=== PATIENT | male | born 1970 | race Caucasian/White ===

== ENCOUNTER → 2021-02-07 | Outpatient (CLI) | payer OTHER ==
[2021-02-07 08:13] LABS: BASO % 0.5 % (0.0-1.0); EOS # 0.1 10*3/uL (0.0-0.4); EOS % 1.7 % (1.0-4.0); LYMPH # 2.7 10*3/uL (1.3-4.4); LYMPH % 33.1 % (27.0-41.0); MEAN CELL VOLUME 90.9 fl (80.0-94.0); MEAN CORPUSCULAR HGB 30.2 pg (27.0-31.0); MEAN CORPUSCULAR HGB CONC 33.3 g/dl (33.0-37.0); MEAN PLATELET VOLUME 9.7 fl (9.6-12.3); MONO # 0.4 10*3/uL (0.1-1.0); MONO % 4.9 % (3.0-9.0); NEUT # 4.9 10*3/uL (2.3-7.9); NEUT % 59.4 % (47.0-73.0); PLATELET COUNT AUTOMATED 213 10*3/uL (130-400); RED BLOOD COUNT 4.73 10*6/uL (4.50-5.90); RED CELL DISTRI WIDTH 12.5 % (0-14.5); RETICULOCYTE % 1.18 % (0.50-2.50); WHITE BLOOD COUNT 8.2 10*3/uL (4.8-10.8)
[2021-02-07 08:22] LABS: BILIRUBIN Negative (Negative); BLOOD Negative (Negative); CLARITY Cloudy (Clear); COLOR Yellow (Yellow); GLUCOSE Negative (Negative); KETONE Trace (Negative); LEUKO ESTERASE Negative (Negative); NITRITE Negative (Negative); PH 6.5 (4.5-8.0); SPECIFIC GRAVITY >= 1.030 (1.001-1.030)
[2021-02-07 08:35] LABS: ALBUMIN 3.7 gm/dl (3.1-4.5); ALKALINE PHOSPHATASE 64 U/L (45-117); BUN 16 mg/dl (7-24); CHLORIDE 107 mmol/L (98-107); CHOLESTEROL 201 mg/dL (<200); CREATININE 1.18 mg/dL (0.70-1.30); GAMMA GLUTAMYL TRANSPEPTIDASE 33 U/L (15-85); IRON 145 ug/dL (65-175); LDL CHOLESTEROL 131 mg/dL (9-159); POTASSIUM 3.9 mmol/L (3.5-5.1); SGOT/AST 18 IU/L (3-35); SGPT/ALT 28 U/L (12-78); SODIUM 139 mmol/L (136-145); TOTAL IRON BINDING CAPACITY 339 ug/dl (250-450); TOTAL PROTEIN 7.6 gm/dL (6.4-8.2); TRIGLYCERIDES 154 mg/dl (<150); URIC ACID 3.1 mg/dL (3.5-7.2)
[2021-02-07 08:53] LABS: FERRITIN 73.5 ng/mL (22.0-322.0); VITAMIN D, 25-HYDROXY 12.8 ng/mL (30-100)
[2021-02-07 11:17] LABS: BACTERIA 1+; MUCOUS 2+
[2021-02-08 05:06] LABS: RHEUMATOID ARTHRITIS FACTOR 25.7 IU/mL (<14.0)
[2021-02-08 14:08] LABS: ANTI-DSDNA ANTIBODIES 1 IU/mL (0-9)
== END | disposition home or self-care (01) ==
LOC: LAB 07:01 → US 07:30
PROVIDERS: ATTEND Family Medicine
DX: N50.3 Cyst of epididymis (principal); K76.0 Fatty (change of) liver, not elsewhere classified; R16.1 Splenomegaly, not elsewhere classified; N50.82 Scrotal pain; N44.2 Benign cyst of testis

== ENCOUNTER → 2021-07-29 | Outpatient (CLI) | payer OTHER | END | disposition home or self-care (01) | LOC: RAD 14:32 | PROVIDERS: ATTEND Family Medicine | DX: M19.041 Primary osteoarthritis, right hand (principal); M19.042 Primary osteoarthritis, left hand ==

== ENCOUNTER → 2023-05-01 | Outpatient (CLI) | payer OTHER ==
[2023-05-01 08:57] LABS: BASO # 0.1 10*3/uL (0.0-0.1); EOS # 0.1 10*3/uL (0.0-0.4); EOS % 1.8 % (1.0-4.0); HEMATOCRIT 43.8 % (42.0-52.0); LYMPH # 2.5 10*3/uL (1.3-4.4); LYMPH % 34.7 % (27.0-41.0); MEAN CELL VOLUME 91.4 fl (80.0-94.0); MEAN CORPUSCULAR HGB 31.5 pg (27.0-31.0); MEAN CORPUSCULAR HGB CONC 34.5 g/dl (33.0-37.0); MEAN PLATELET VOLUME 10.3 fl (9.6-12.3); MONO # 0.4 10*3/uL (0.1-1.0); MONO % 5.5 % (3.0-9.0); NEUT % 56.7 % (47.0-73.0); PLATELET COUNT AUTOMATED 235 10*3/uL (130-400); RED BLOOD COUNT 4.79 10*6/uL (4.50-5.90); RED CELL DISTRI WIDTH 12.4 % (0-14.5); RETICULOCYTE % 0.89 % (0.50-2.50); WHITE BLOOD COUNT 7.1 10*3/uL (4.8-10.8)
[2023-05-01 09:11] LABS: BILIRUBIN Negative (Negative); BLOOD Negative (Negative); CLARITY Clear (Clear); COLOR Yellow (Yellow); GLUCOSE Negative (Negative); KETONE Trace (Negative); LEUKO ESTERASE Negative (Negative); NITRITE Negative (Negative); PH 6.5 (4.5-8.0); SPECIFIC GRAVITY 1.025 (1.001-1.030)
[2023-05-01 09:18] LABS: BACTERIA TRACE; EPITHELIAL CELLS 0-2; HYALINE CAST 0-2; MUCOUS 2+
[2023-05-01 09:48] LABS: ALKALINE PHOSPHATASE 63 U/L (46-116); BUN 9 mg/dl (9-23); CHLORIDE 107 mmol/L (98-107); CHOLESTEROL 159 mg/dL (<200); GAMMA GLUTAMYL TRANSPEPTIDASE 23 U/L (0-73); LDL CHOLESTEROL 98 mg/dL (9-159); SGPT/ALT 16 U/L (5-49); THYROXINE (T4) TOTAL 7.2 ug/dl (4.5-10.9); TOTAL PROTEIN 7.9 gm/dL (6.0-8.0); TRIGLYCERIDES 81 mg/dl (<150); URIC ACID 2.5 mg/dL (3.7-9.2)
[2023-05-01 09:54] LABS: VITAMIN D, 25-HYDROXY 19.7 ng/mL (30-100)
[2023-05-04 15:07] LABS: ANTI-DSDNA ANTIBODIES 1 IU/mL (0-9)
== END | disposition home or self-care (01) ==
LOC: LAB 08:22
PROVIDERS: ATTEND Family Medicine
DX: E78.5 Hyperlipidemia, unspecified (principal); E55.9 Vitamin D deficiency, unspecified; R79.89 Other specified abnormal findings of blood chemistry; R53.83 Other fatigue

== ENCOUNTER 2024-04-01 12:38 | Emergency (ER) | payer OTHER ==
[~2024-04-01] VITALS: Ht 175.2 cm; Wt 97.5 kg
[~2024-04-01 12:38] MED LIST: NORVASC10 MG PO
[2024-04-01] MEDS ORDERED: Acetaminophen/Hydrocodone HP 10/325 PO ONE (13:35)
== END 2024-04-01 14:05 | disposition home or self-care (01) ==
LOC: ED 12:38
DX: S92.354A Nondisplaced fracture of fifth metatarsal bone, right foot, initial encounter for closed fracture (principal); I10 Essential (primary) hypertension; Z98.890 Other specified postprocedural states; W10.8XXA Fall (on) (from) other stairs and steps, initial encounter; Y93.89 Activity, other specified; Y92.89 Other specified places as the place of occurrence of the external cause; Y99.8 Other external cause status

== ENCOUNTER → 2024-06-23 | Outpatient (CLI) | payer OTHER | END | disposition home or self-care (01) | LOC: RAD 09:35 | PROVIDERS: ATTEND Family Medicine | DX: J98.11 Atelectasis (principal); R07.81 Pleurodynia ==